=== PATIENT | female | born 1955 | race Caucasian/White ===

== ENCOUNTER → 2019-02-10 | Outpatient (CLI) | payer OTHER ==
--- NOTE | 2019-02-10 12:04 | RAD ---
EXAM: Lumbar spine, 2 views. HISTORY: Spondylolisthesis. COMPARISON: None. FINDINGS: 2 views of the lumbar spine are obtained. There is grade 1 anterolisthesis of L4 and L5. There is degenerative endplate remodeling with disc space narrowing, vacuum phenomenon and facet arthropathy at this level. There is mild retrolisthesis of L1 on L2 and L2 on L3 and L3 on L4 and L5 on S1, a component of which may be projectional. There is multilevel endplate remodeling. There is facet arthropathy at the lumbosacral junction. IMPRESSION: 1. Grade 1 anterolisthesis of L4 and L5 and mild retrolisthesis at multiple lumbar levels. 2. Multilevel degenerative change, primarily at L4-L5. Electronically signed by: Rica Marte MD (02/10/2019 12:01 PM) [facility]
== END | disposition home or self-care (01) ==
LOC: RAD 10:12
PROVIDERS: ATTEND Internal Medicine
DX: M47.816 Spondylosis without myelopathy or radiculopathy, lumbar region (principal); M43.17 Spondylolisthesis, lumbosacral region; M48.061 Spinal stenosis, lumbar region without neurogenic claudication; M53.87 Other specified dorsopathies, lumbosacral region; M46.87 Other specified inflammatory spondylopathies, lumbosacral region
CPT/HCPCS: 72100